=== PATIENT | female | born 1965 | race Caucasian/White ===

== ENCOUNTER 2019-12-04 00:09 | Observation (INO) | payer OTHER, SELFPAY ==
[2019-12-04] VITALS (16 sets, daily range): BP systolic 103–142; BP diastolic 62–114; PULSE 82–108; RESP 12–24; TEMP 36.1–37.5; O2SAT 93–100; BMI 32.9
--- NOTE | ~2019-12-04 | CT_ITS ---
EXAMINATION: CT abdomen pelvis w con INDICATION: Right lower quadrant pain TECHNIQUE: Computed tomographic images of the abdomen and pelvis were obtained after the administrati on of 100 cc of Omnipaque 350 intravenous contrast. The dose-length product (DLP) was 730.19 mGy-cm. Automated exposure control and iterative reconstruction technique were employed. COMPARISON: None available FINDINGS: Minimal dependent atelectasis is present in the lung bases. The heart size is normal. The g allbladder is surgically absent. There is mild enlargement of the common bile duct and central intrah epatic ducts which is likely due to post cholecystectomy state. Focal low attenuation of the liver ad jacent to the ligamentum teres likely reflects steatosis. There is a 7 mm cyst of the right hepatic l obe. The spleen, pancreas, and adrenal glands are normal. The kidneys are unremarkable. The dilated a ppendix measures up to 15 mm. There is edematous stranding of the periappendiceal fat. No periappendi ceal abscess or perforation are identified. No pathologically enlarged abdominal or pelvic lymph node s are identified. There is no free intraperitoneal gas or evidence of bowel obstruction. A moderate v olume of colonic stool is noted. IMPRESSION: 1. Uncomplicated acute appendicitis. These findings were discussed with Dr. Sabino Garcia in the Emergency Department at 0117 hours on 12/04/2019 by the [employer] Radiologist. Reviewed, dictated and finalized at location A. IMPRESSION: 1. Uncomplicated acute appendicitis. These findings were discussed with Dr. And rew Presley Garcia in the Emergency Department at 0117 hours on 12/04/2019 by the [employer]iologist.
[2019-12-04 00:37] LABS: Basophils Absolute Auto 0.1 K/mm3 (0.0-0.1); Basophils Percent Auto 0.7 % (0.2-1.2); Eosinophils Absolute Auto 0.2 K/mm3 (0-0.3); Eosinophils Percent Auto 1.1 % (0-4.4); Hematocrit 41.1 % (37.0-47.0); Hemoglobin 13.7 g/dL (12.0-15.0); Immature Granulocyte Absolute 0.05 K/mm3 (0.00-0.031); Immature Granulocyte Percent A 0.4 % (0-0.5); Lymphocytes Absolute Auto 2.35 K/mm3 (0.9-3.2); Lymphocytes Percent Auto 16.5 % (18.3-44.2); Mean Corpuscular HGB Conc 33.3 g/dl (32-36); Mean Corpuscular Hemoglobin 27.8 pg (26-34); Mean Corpuscular Volume 83.5 fl (80-100); Mean Platelet Volume 10.4 fl (7.4-10.4); Monocytes Absolute Auto 1.3 K/mm3 (0.1-0.6); Neutrophils Absolute Auto 10.3 K/mm3 (1.3-6.7); Neutrophils Percent Auto 72.3 % (45.5-73.1); Platelet Count Result 354 k/mm3 (150-375); Red Blood Count 4.92 M/mm3 (4.2-5.4); White Blood Count 14.2 K/mm3 (4.5-10.0)
[2019-12-04 00:40] LABS: Add Urine Microscopic? NO; Appearance Urine Clear (Clear); Bilirubin Urine Negative (Negative); Blood Urine Negative (Negative); Color Urine Yellow (Yellow); Glucose Urine UA Negative (Negative); Ketones Urine Negative (Negative); Leukocyte Esterase Ur Negative LEU/UL (Negative); Nitrate Urine Negative (Negative); Protein Urine Negative (Negative); Urobilinogen Urine Negative mg/dL (<2.0)
[2019-12-04] MEDS: MORPHINE SULFATE 4 MG/ML INJ IV PUSH ×3 (00:45→04:24)
[2019-12-04 00:46] LABS: Alanine Aminotransferase 56 U/L (4-35); Albumin Level 4.3 g/dL (3.5-5.1); Alkaline Phosphatase 122 U/L (38-126); Anion Gap 10 mmol/L (8-16); Aspartate Amino Transferase 29 U/L (14-36); Bilirubin,Total 0.7 mg/dL (0.2-1.3); Blood Urea Nitrogen 16 mg/dL (7-17); Calcium 9.7 mg/dL (8.4-10.2); Carbon Dioxide 24 mmol/L (22-30); Chloride 102 mmol/L (98-107); Estimated Glomerular Filt Rate > 60; Glucose 104 mg/dL (65-105); Lipase 51 U/L (23-300); Potassium 3.8 mmol/L (3.4-5.0); Sodium 136 mmol/L (137-145)
[2019-12-04] MEDS: ONDANSETRON INJ 4 MG/2 ML VIAL IV PUSH ×2 (00:46→06:13)
--- NOTE | 2019-12-04 01:26 | ED.ABDPAIN ---
HPI - Abdominal Pain General Chief Complaint: Abdominal Pain Stated Complaint: abd pain Time Seen by Provider: 12/04/19 00:18 History of Present Illness HPI narrative: Patient is a 54-year-old female who presents the ER with abdominal pain. Ongoing for last 2 days. Much worse this evening and located in the right lower quadrant and radiates to the right upper quadrant. Worse with any type of movement. She is found no alleviating factors. She has had gaseous bloating feeling. No constipation. No urinary symptoms. Related Data Home Medications Medication Instructions Recorded Confirmed albuterol sulfate INHALATION 12/04/19 12/04/19 hydrochlorothiazide 12/04/19 lisinopril 12/04/19 montelukast mg 12/04/19 tiotropium bromide [Spiriva with INHALATION 12/04/19 HandiHaler] Allergies Allergy/AdvReac Type Severity Reaction Status Date / Time No Known Allergies Allergy Verified 12/04/19 00:18 Review of Systems Review of Systems: All systems reviewed & are unremarkable except as noted in HPI and below Constitutional: Constitutional: Denies chills, Denies fever(s) and Denies weakness Gastrointestinal: Gastrointestinal: Reports abdominal pain, Reports bloating and Denies constipation Genitourinary: Genitourinary: Denies nocturia, Denies dysuria and Denies flank pain PMFSH Past Medical History Medical History (Updated 12/04/19 @ 02:28 by Sabino Garcia MD) Asthma Hypertension Surgical History Surgical History (Updated 12/04/19 @ 01:54 by Sabino Garcia MD) History of cholecystectomy Social History Social History (Updated 12/04/19 @ 01:54 by Sabino Garcia MD) Smoking status: Never smoker Exam Narrative: Exam Narrative: GENERAL: Uncomfortable-appearing, well-nourished, and in no acute distress. HEAD: Normocephalic, atraumatic. ENT: Mucous membranes moist. CHEST: Clear to auscultation. No respiratory distress. HEART: Regular rate and rhythm. Normal peripheral pulses. ABDOMEN: Soft, tender palpation right lower quadrant McBurney's point with voluntary guarding, nondistended. EXTREMITIES: Normal range of motion. No edema. SKIN: Warm, dry, no rash. NEURO: Alert and oriented x3. Course Course Emergency Course: Patient informed of results. General surgery contacted and will admit the patient to their service. Zosyn ordered for antibiotic coverage. Patient had increase in pain and received Dilaudid. Abdominal exam seems improved from original exam. Surgery recontacted and no additional imaging warranted at this time. Vital Signs Vital signs: Vital Signs Temperature 97 F L 12/04/19 00:13 Pulse Rate 98 12/04/19 00:13 Respiratory Rate 16 12/04/19 00:13 Blood Pressure 142/114 H 12/04/19 00:13 Pulse Oximetry 99 12/04/19 00:13 Temperature 97 F L 12/04/19 02:05 Pulse Rate 94 12/04/19 01:39 Respiratory Rate 24 H 12/04/19 01:39 Blood Pressure 126/81 12/04/19 01:39 Pulse Oximetry 100 12/04/19 01:39 MDM - Abdominal Pain Lab Data Result diagrams: 12/04/19 00:27 12/04/19 00:27 Labs: Lab Results 12/04/19 12/04/19 12/04/19 Range/Units 00:27 00:27 00:27 WBC 14.2 H (4.5-10.0) K/mm3 RBC 4.92 (4.2-5.4) M/mm3 Hgb 13.7 (12.0-15.0) g/dL Hct 41.1 (37.0-47.0) % MCV 83.5 (80-100) fl MCH 27.8 (26-34) pg MCHC 33.3 (32-36) g/dl RDW 13.0 (11.5-14.5) % Plt Count 354 (150-375) k/mm3 MPV 10.4 (7.4-10.4) fl Immature Gran % (Auto) 0.4 (0-0.5) % Neut % (Auto) 72.3 (45.5-73.1) % Lymph % (Auto) 16.5 L (18.3-44.2) % [place] % (Auto) 9.0 H (2.6-8.5) % Eos % (Auto) 1.1 (0-4.4) % Baso % (Auto) 0.7 (0.2-1.2) % Lymph # (Auto) 2.35 (0.9-3.2) K/mm3 [place] # (Auto) 1.3 H (0.1-0.6) K/mm3 Eos # (Auto) 0.2 (0-0.3) K/mm3 Baso # (Auto) 0.1 (0.0-0.1) K/mm3 Abs Immat Gran (auto) 0.05 H (0.00-0.031) K/mm3 Absolute Neuts (auto) 10.3 H (1.3-6.7)
--- NOTE | 2019-12-04 02:15 | PC.NURSE ---
report given to prisca wilder on 3rd floor. however patient is still in a lot of pain, made aware and is contacting the surgeon compilation clerk. call to prisca to update him on patient condition. pt to stay in ed until md hager speaks to surgeon.
[2019-12-04] MEDS: SODIUM CHLORIDE 0.9% IV 1,000 ML 125 ML IV CONT (02:54)
--- NOTE | 2019-12-04 03:16 | ADMGEN ---
This patient, Alessandra Schmidt, was admitted to 3 [facility] Surg Room 302-01. Patient/family oriented to hospital policies and general routines including ID bracelet, bed and alarms, visiting hours, pain management, procedures, bathroom and other care routines, personal items, smoking policy, room service/diet, and visiting hours. Valuables list has been completed. Information on how to activate the Rapid Response Team has been discussed. Patient/Family are encouraged to report perceived risks to care and to ask questions if they do not understand what they are told or what they should do.
--- NOTE | 2019-12-04 07:29 | PM.IMHP ---
H&P: HPI History of Present Illness Date/Time: 12/04/19 07:29 Chief complaint: appendicitis Narrative: Alessandra Schmidt is a 54 year old female presenting to ED overnight c/o 2 d h/o worsening R sided abd pain. Pt reports pain now mostly localized to RLQ and severe, constant. Pt reports pain worse c movt. Pt reports assoc malaise, anorexia, nausea. Pt denies previous episodes. Review of Systems Constitutional: Constitutional: Reports body ache(s), Denies chills, Reports fatigue, Reports lethargy, Denies night sweats and Reports weakness Eyes: Eyes: Reports no additional eye complaints ENT: Reports system reviewed and no additional complaints, except as documented Cardiovascular: Cardiovascular: Reports no additional cardiovascular complaints Respiratory: Respiratory: Reports no additional respiratory complaints Gastrointestinal: Gastrointestinal: Reports abdominal pain, Denies melena, Reports bloating, Denies hematochezia, Denies constipation, Reports heartburn, Denies diarrhea, Reports nausea, Denies vomiting and Denies hematemesis Genitourinary: Genitourinary: Reports no additional female genitourinary complaints Musculoskeletal: Musculoskeletal: Reports no additional musculoskeletal complaints Integumentary/Breasts: Skin/Breast: Reports system reviewed and no additional complaints, except as docu Neurologic: Reports system reviewed and no additional complaints, except as documented Psychiatric: Psychiatric: Reports no additional psychiatric complaints PMFSH Past Medical History Medical History Asthma Hypertension Surgical History Surgical History History of cholecystectomy Family History Family History Mother Rheumatoid arthritis Hypertension Sibling Rheumatoid arthritis Hypertension Irritable bowel Social History Social History Smoking status: Never smoker Alcohol intake: current Drinks per week: 5 Substance use: never Spiritual care concerns: No Meds Home Medications and Allergies Home Medications Medication Instructions Recorded Confirmed Type albuterol sulfate 1 puff INHALATION PRN PRN 12/04/19 12/04/19 History budesonide-formoterol [Symbicort] 1 puff INHALATION PRN PRN 12/04/19 12/04/19 History hydrochlorothiazide 25 mg PO DAILY 12/04/19 12/04/19 History lisinopril 2.5 mg PO DAILY 12/04/19 12/04/19 History montelukast 10 mg PO DAILY 12/04/19 12/04/19 History omeprazole 20 mg PO DAILY 12/04/19 12/04/19 History tiotropium bromide [Spiriva with 1 cap INHALATION PRN PRN 12/04/19 12/04/19 History HandiHaler] Allergies Allergy/AdvReac Type Severity Reaction Status Date / Time No Known Allergies Allergy Verified 12/04/19 00:18 Vital Signs Vital Signs - 24 hr 12/04/19 00:13 12/04/19 01:39 12/04/19 02:05 Temperature 36.1 C L 36.1 C L Pulse Rate 98 94 Respiratory Rate 16 24 H Blood Pressure 142/114 H 126/81 Pulse Oximetry 99 100 12/04/19 02:13 12/04/19 02:30 12/04/19 06:00 Temperature 37.5 C 36.9 C Pulse Rate 94 86 82 Respiratory Rate 24 H 24 H 20 Blood Pressure 126/81 126/83 103/62 Pulse Oximetry 100 100 97 Exam Const: General: in distress mild and uncomfortable HENMT: Mouth: Yes moist mucous membranes Eyes: General: appearance normal, both eyes and all related structures Pupils: Equal, round and reactive pupils present EOM: EOMs intact bilaterally Neck: Neck: supple and no JVD Lymphatic: lymphadenopathy not noted Resp: Auscultation: clear to auscultation bilaterally Cardio: Rate: regular rate Rhythm: regular rhythm GI: Inspection: distended GI Palp: Yes Soft to palpation, Yes Tenderness to palpation present (GI), Yes Guarding due to palpation present (GI) and No Hernia present Other: focal TTP RLQ, vol guarding Sk
--- NOTE | 2019-12-04 08:41 | PC.NURSE ---
To OR per [bed ], IV [ 18 Right Hand Saline Locked].
--- NOTE | 2019-12-04 08:44 | WPDANESEPPF ---
Anes - Initial Pre Proc Eval Procedure: Operation Date: 12/04/19 10:30 Proposed Procedures p Laparoscopic Appendectomy - Shavon Miller MD Date/Time: 12/04/19 08:44 Surgeon: Shavon Miller MD Pre Op Diagnosis: appendicitis Patient Data Age: 54 Gender: F Height: 5 ft 3 in Weight: 84.4 kg Last Vital Signs Temp 36.9 C 12/04/19 06:00 Pulse 82 12/04/19 06:00 Resp 20 12/04/19 06:00 BP 103/62 12/04/19 06:00 Pulse Ox 97 12/04/19 06:00 Allergies Allergy/AdvReac Type Severity Reaction Status Date / Time No Known Allergies Allergy Verified 12/04/19 00:18 Home Medications Medication Instructions Recorded Confirmed Type albuterol sulfate 1 puff INHALATION PRN PRN 12/04/19 12/04/19 History budesonide-formoterol [Symbicort] 1 puff INHALATION PRN PRN 12/04/19 12/04/19 History hydrochlorothiazide 25 mg PO DAILY 12/04/19 12/04/19 History lisinopril 2.5 mg PO DAILY 12/04/19 12/04/19 History montelukast 10 mg PO DAILY 12/04/19 12/04/19 History omeprazole 20 mg PO DAILY 12/04/19 12/04/19 History tiotropium bromide [Spiriva with 1 cap INHALATION PRN PRN 12/04/19 12/04/19 History HandiHaler] Laboratory Tests 12/04/19 12/04/19 12/04/19 00:27 00:27 00:27 WBC 14.2 K/mm3 H K/mm3 (4.5-10.0) RBC 4.92 M/mm3 M/mm3 (4.2-5.4) Hgb 13.7 g/dL g/dL (12.0-15.0) Hct 41.1 % % (37.0-47.0) MCV 83.5 fl fl (80-100) MCH 27.8 pg pg (26-34) MCHC 33.3 g/dl g/dl (32-36) RDW 13.0 % % (11.5-14.5) Plt Count 354 k/mm3 k/mm3 (150-375) MPV 10.4 fl fl (7.4-10.4) Immature Gran % (Auto) 0.4 % % (0-0.5) Neut % (Auto) 72.3 % % (45.5-73.1) Lymph % (Auto) 16.5 % L % (18.3-44.2) [place] % (Auto) 9.0 % H % (2.6-8.5) Eos % (Auto) 1.1 % % (0-4.4) Baso % (Auto) 0.7 % % (0.2-1.2) Lymph # (Auto) 2.35 K/mm3 K/mm3 (0.9-3.2) [place] # (Auto) 1.3 K/mm3 H K/mm3 (0.1-0.6) Eos # (Auto) 0.2 K/mm3 K/mm3 (0-0.3) Baso # (Auto) 0.1 K/mm3 K/mm3 (0.0-0.1) Abs Immat Gran (auto) 0.05 K/mm3 H K/mm3 (0.00-0.031) Absolute Neuts (auto) 10.3 K/mm3 H K/mm3 (1.3-6.7) Absolute Nucleated RBC 0.0 K/mm3 K/mm3 (0.0-0.012) Nucleated RBC % 0.0 % % (0.0-0.2) Sodium 136 mmol/L L mmol/L (137-145) Potassium 3.8 mmol/L mmol/L (3.4-5.0) Chloride 102 mmol/L mmol/L (98-107) Carbon Dioxide 24 mmol/L mmol/L (22-30) Anion Gap 10 mmol/L mmol/L (8-16) BUN 16 mg/dL mg/dL (7-17) Creatinine 0.70 mg/dL mg/dL (0.7-1.0) Estim Creat Clear Calc Not Reportable Estimated GFR > 60 (59 - ) Glucose 104 mg/dL mg/dL (65-105) Calcium 9.7 mg/dL mg/dL (8.4-10.2) Total Bilirubin 0.7 mg/dL mg/dL (0.2-1.3) AST 29 U/L U/L (14-36) ALT 56 U/L H U/L (4-35) Alkaline Phosphatase 122 U/L U/L (38-126) Total Protein 7.0 g/dL g/dL (6.3-8.2) Albumin 4.3 g/dL g/dL (3.5-5.1) Lipase 51 U/L U/L (23-300) Urine Color Yellow (Yellow) Urine Appearance Clear (Clear) Urine pH 5.0 (5.0-9.0) Ur Specific [place] 1.030 (1.001-1.035) Urine Protein Negative mg/dL mg/dL (Negative) Urine Glucose (UA) Negative mg/dL mg/dL (Negative) Urine Ketones Negative mg/dL mg/dL (Negative) Ur Blood (Man) Negative (Negative) Urine Nitrate Negative (Negative) Urine Bilirubin Negative (Negative) Urine Urobilinogen Negative mg/dL mg/dL (<2.0) Leukocyte Esterase Rfl Negative AMPARO/UL AMPARO/UL (Negative) Patient hx anesthesia problems: none Family hx anesthesia problems: none PMFSH Past Medical History Medic
[2019-12-04] MEDS: LACTATED RINGERS 1,000 ML 30 ML IV CONT ×2 (08:46→09:47)
[2019-12-04] MEDS: BUPIVACAINE/EPINEPHRINE 0.5% 30 ML VIAL INFILTRATE (09:08)
--- NOTE | 2019-12-04 09:47 | PM.PROC ---
Procedure Note - Detailed Date of procedure: 12/04/19 Pre-op diagnosis: appendicitis Post-op diagnosis: same Procedure performed: Laparoscopic appendectomy Description of procedure: The patient was brought into the operating room placed in the supine position. After adequate induction of general anesthesia, the patient was prepped and draped in normal sterile fashion. A time-out was then done to verify the patient's identity as well as the procedure being performed. I began by making a 5 mm incision in the infraumbilical region. A 5 mm Optiview trocar within used to gain access into the peritoneal cavity. Once into the peritoneal cavity, CO2 gas was insufflated. After adequate pneumoperitoneum was achieved, the laparoscope was placed into the 5 mm trocar. Under direct visualization, I went ahead and placed a further 5 mm suprapubic port as well as a 12 mm port in the left lower abdomen. At this point, I was able to visualize cecum. The cecum was retracted both cephalad and medial, and this allowed us to expose the appendix. The appendix was noted to be very dilated, injected, and inflamed. There was no obvious perforation of the appendix. The appendix was adhered to the terminal ileum medially and the right lateral side wall laterally. I gently and bluntly dissected the appendix free from these adhesions. I then grasped the appendix near the tip of the appendix and retracted both anterior and lateral. This allowed exposure of the base of the appendix with the cecum. I then created a window with the [place] dissector between the appendix and the mesoappendix at the base of the appendix. Once this was achieved, a vascular staple load on the Endo-MARKSO was placed through the 12 mm port site and subsequently transected the mesoappendix. It was noted there was some bleeding at the staple line and this was stopped using 5 mm clips. I also had to use a second vascular staple load as the mesoappendix was very inflammed and friable. I then reloaded the Endo-MARKOS with a blue staple load and transected the base of the appendix with the cecum. Once the appendiceal specimen was completely detached, a Endo pouch was placed through the 12 mm port site. The appendix was placed into the Endo pouch and removed through the 12 mm port site. The appendix will now be sent to pathology for further review. I then visualized the right lower quadrant, both staple lines were noted to be intact and hemostatic. No other pathology was noted in the right lower quadrant or pelvis. I then moved the laparoscope to the 5 mm suprapubic port. I then visualized our port of entry at the 5 mm infraumbilical site. No iatrogenic injury or other pathology was seen in the upper abdomen. I then desufflated the abdomen and all ports were removed. The fascia of the 12 mm port site was closed with an 0 Vicryl figure of 8 suture. All port sites were then closed with 4 O Monocryl subcuticular suture. The patient tolerated the procedure well and was extubated in the operating room postoperatively. The patient will be transferred to the recovery room in stable condition. Anesthesia: GETA Surgeon: Shavon Miller MD Estimated blood loss (mL): 50 Drains: No Packing: No Pathology: yes Complications: No immediate complications Condition: stable Disposition: PACU Findings: Acute uncomplicated appendicitis
--- NOTE | 2019-12-04 09:51 | PM.DS ---
DS: Admitting Diagnosis Admitting Diagnosis Admitting Diagnosis: appendicitis DS: Discharge Diagnosis Discharge Diagnosis (1) Acute appendicitis: Code(s): K35.80 - Unspecified acute appendicitis Status: Acute Assessment and Plan: s/p appendectomy, routine postop care, po analgesia, f/u 2 wks (2) Hypertension: Code(s): I10 - Essential (primary) hypertension Status: Acute Assessment and Plan: stable, cont home meds (3) Asthma: Code(s): J45.909 - Unspecified asthma, uncomplicated Status: Acute Assessment and Plan: stable, cont home meds DS: Summary Hospital Course Reason for hospitalization: acute appendicitis Hospital Course: Pt presented to ED c/o severe R sided abd pain. Workup including imaging significant for acute appendicitis. Pt admitted, made NPO, started on IV abx. Pt taken to OR on 12/03 for lap appy, please see full op note for details. Postop, pt did well and transferred back to floor. Pt was able to seth diet and was up ambulating without difficulty. Pt pain controlled c po analgesia. Pt will be discharged home c po analgesia, colace. Pt to f/u in office in 2 wks. Status at Discharge Functional status at discharge: independent ambulation Overall status at discharge: patient is progressing back to baseline Time Spent with Patient Time attestation: Total time spent providing and/or coordinating discharge services: Time spent: Less than 30 minutes DS: Data Data Completed and Pending Pending studies at discharge: Pending at discharge 12/04/19 09:27 Surgical [PTH] Routine Labs on day of discharge: Labs from last 24 hours 12/04/19 12/04/19 12/04/19 00:27 00:27 00:27 WBC 14.2 H RBC 4.92 Hgb 13.7 Hct 41.1 MCV 83.5 MCH 27.8 MCHC 33.3 RDW 13.0 Plt Count 354 MPV 10.4 Immature Gran % (Auto) 0.4 Neut % (Auto) 72.3 Lymph % (Auto) 16.5 L [place] % (Auto) 9.0 H Eos % (Auto) 1.1 Baso % (Auto) 0.7 Lymph # (Auto) 2.35 [place] # (Auto) 1.3 H Eos # (Auto) 0.2 Baso # (Auto) 0.1 Abs Immat Gran (auto) 0.05 H Absolute Neuts (auto) 10.3 H Absolute Nucleated RBC 0.0 Nucleated RBC % 0.0 Sodium 136 L Potassium 3.8 Chloride 102 Carbon Dioxide 24 Anion Gap 10 BUN 16 Creatinine 0.70 Estim Creat Clear Calc Not Reportable Estimated GFR > 60 Glucose 104 Calcium 9.7 Total Bilirubin 0.7 AST 29 ALT 56 H Alkaline Phosphatase 122 Total Protein 7.0 Albumin 4.3 Lipase 51 Urine Color Yellow Urine Appearance Clear Urine pH 5.0 Ur Specific [place] 1.030 Urine Protein Negative Urine Glucose (UA) Negative Urine Ketones Negative Ur Blood (Man) Negative Urine Nitrate Negative Urine Bilirubin Negative Urine Urobilinogen Negative Leukocyte Esterase Rfl Negative Discharge Plan Discharge Attending physician on discharge: Shavon Miller Discharging Clinician: Shavon Miller Anticipated Discharge Date/Time: 12/04/19 14:00 Patient Disposition: Home, Self-Care Activity: may shower Diet: as tolerated Wound Care Instructions: follow printed instructions Discharge Instructions: DISCHARGE INSTRUCTION SHEET FOR HERNIA, GALLBLADDER AND APPENDIX SURGERIES DR. MILLER PATIENT TO TAKE HOME 1. May shower in 24 hours, no soaking in bath x 2weeks. 2. Call office for: Wound increasingly painful or bleeding Vomiting Fever of greater than 101 degrees 3. If no bowel movement for three days, take 1 oz. (30 ml) Milk of Magnesia or MiraLax 17g 1 to 2 times daily. 4. No heavy lifting > 10-15 pounds x weeks for hernia repairs and 2 weeks for laparoscopic cholecystectomy or appendectomy. 5. No driving for 3 days or while taking narcotic pain medications. 6. Ice to surgical site for 48 hours (30 min on, then 30 min off).
--- NOTE | 2019-12-04 11:34 | PC.NURSE ---
Returned from OR per [ bed]. Report received from [ Ifrah ].
[2019-12-04] MEDS: lisinopriL 2.5 MG TABLET PO (11:48)
[2019-12-04] MEDS: MONTELUKAST SODIUM 10 MG TABLET PO (11:48)
[2019-12-04] MEDS: hydroCHLOROthiazide 25 MG TABLET PO (11:48)
[2019-12-04] MEDS: PANTOPRAZOLE 40 MG TABLET PO (11:48)
== END 2019-12-04 15:42 | disposition home or self-care (01) ==
LOC: ANHED 00:44 → ANH3MEDSUR 02:01
PROVIDERS: Admitting Provider Surgery; Emergency Provider Emergency Medicine; PCP Internal Medicine; Visit Provider Surgery
PROC: 0DTJ4ZZ Resection of Appendix, Percutaneous Endoscopic Approach (ICD-10-PCS; CPT 44970; principal; 2019-12-04 10:30)
DX: K35.30 Acute appendicitis with localized peritonitis, without perforation or gangrene (principal); I10 Essential (primary) hypertension; J45.909 Unspecified asthma, uncomplicated
CPT/HCPCS: 44970; 36415; 74177; 80053; 81003; 81025; 83690; 85025; 88304; 96361; 96365; 96375; 96376; 99285; A9270; G0378; J0131; J0330; J1100; J1170; J2250; J2270; J2370; J2405; J2543; J2704; J2710; J3010; J7030; J7120; Q9967